=== PATIENT | male | born 1965 | race Two or more races ===

== ENCOUNTER 2023-02-22 13:08 | Inpatient (IN) | payer BC ==
[~2023-02-22] VITALS: Ht 182.9 cm; Wt 109.0 kg
[2023-02-22] MEDS ORDERED: ASPirin 325 MG TAB PO ONE (13:30)
[2023-02-22 13:54] LABS: Albumin 3.6 g/dL (3.4-5.0); Calcium 8.4 mg/dL (8.5-10.1); Magnesium 2.5 mg/dL (1.6-2.6); Potassium 4.8 mmol/L (3.5-5.1)
[2023-02-22 13:58] LABS: BUN/Creatinine Ratio 21.2 (10.0-20.0); Bilirubin, Total 0.7 mg/dL (0.2-1.0); Total Protein 7.3 g/dL (6.4-8.2)
[2023-02-22 14:01] LABS: INR 1.02 (0.9-1.15); Partial Thromboplastin Time 30.3 sec (24.6-33.4)
[2023-02-22 14:24] LABS: Basophils # (auto) 0.1 10 ^3/uL (0-0.2); Basophils % (auto) 0.8 % (0.0-2.0); Eosinophils # (auto) 0.2 10 ^3/uL (0-0.8); Eosinophils % (auto) 1.8 % (0.0-7.0); Hematocrit 43.4 % (41.0-53.0); Hemoglobin 14.6 g/dL (13.5-17.5); Lymphocytes # (auto) 1.4 10 ^3/uL (0.4-5.4); Lymphocytes % (auto) 13.9 % (10.0-50.0); Mean Corpuscular Hemoglobin 31.5 pg (28.0-32.0); Mean Corpuscular Hgb Conc. 33.6 g/dL (32.0-36.0); Mean Corpuscular Volume 93.7 fL (80.0-100.0); Monocytes # (auto) 0.6 10 ^3/uL (0-1.3); Monocytes % (auto) 6.1 % (0.0-12.0); Neutrophils # (auto) 7.7 10 ^3/uL (1.6-8.6); Neutrophils % (auto) 77.4 % (37.0-80.0); Red Blood Cells 4.63 10^6/uL (4.5-5.90); Red Cell Distribution Width 13.8 % (11.8-14.3)
[2023-02-22] MEDS ORDERED: NITROGLYCERIN 0.4 MG SL TAB SL ONE (15:15)
[2023-02-22 15:32] LABS: Urine Bacteria NONE SEEN /hpf (None Seen); Urine Blood Negative /uL (Negative); Urine Mucus FEW (None Seen); Urine Specific Gravity 1.022 (1.001-1.035); Urine WBC 11 /hpf (0 - 3)
[2023-02-22 15:53] LABS: Barbiturate Scree,Urine NEGATIVE (NEGATIVE); Benzodiazephine Screen, Urine NEGATIVE (NEGATIVE); Cannabinoid Screen, Urine POSITIVE (NEGATIVE); Cocaine Screen, Urine NEGATIVE (NEGATIVE)
[2023-02-22 16:00] LABS: Amphetamine Screen, Urine NEGATIVE (NEGATIVE); Opiate Scree,Urine NEGATIVE (NEGATIVE); Phencyclidine Screen, Urine NEGATIVE (NEGATIVE)
[2023-02-22] MEDS ORDERED: ONDANSETRON HCL 4 MG/2 ML VIAL IV PRN (21:00)
[2023-02-22] MEDS ORDERED: DOCUSATE SOD 100 MG CAP PO PRN (21:00)
[2023-02-22] MEDS ORDERED: cefTRIAXone 1GM/50ML D5W 50 ML IV ONE (21:00)
[2023-02-22] MEDS: SODIUM CHLORIDE 0.9% 1,000 ML IV SCH (21:00)
[2023-02-22] MEDS ORDERED: ACETAMINOPHEN 325 MG TAB PO PRN (21:00)
[2023-02-22] MEDS ORDERED: DEXTROSE (50%) 50ML SYRG IV PRN (21:00)
[2023-02-22] MEDS: InsuLIN REG 1unit/0.01ml Soln (100units/ml) SC SCH (22:00)
[2023-02-22] MEDS: ATORVASTATIN 20 MG TAB PO SCH (22:23)
[2023-02-22] MEDS: ACCU-CHEK COMFORT CURVE STRIP VI SCH (22:24)
[2023-02-22] MEDS ORDERED: NITROGLYCERIN 0.4 MG SL TAB SL PRN (23:45)
[2023-02-22] MEDS ORDERED: MORPHINE SULFATE INJ 2 MG/ml SYRG IV PRN (23:45)
[2023-02-23 05:09] LABS: Basophils # (auto) 0.1 10 ^3/uL (0-0.2); Basophils % (auto) 0.6 % (0.0-2.0); Eosinophils # (auto) 0.2 10 ^3/uL (0-0.8); Eosinophils % (auto) 2.6 % (0.0-7.0); Hematocrit 42.7 % (41.0-53.0); Hemoglobin 14.3 g/dL (13.5-17.5); Lymphocytes # (auto) 1.3 10 ^3/uL (0.4-5.4); Lymphocytes % (auto) 15.7 % (10.0-50.0); Mean Corpuscular Hemoglobin 31.7 pg (28.0-32.0); Mean Corpuscular Hgb Conc. 33.4 g/dL (32.0-36.0); Mean Corpuscular Volume 94.7 fL (80.0-100.0); Monocytes # (auto) 0.8 10 ^3/uL (0-1.3); Monocytes % (auto) 9.3 % (0.0-12.0); Neutrophils # (auto) 6.1 10 ^3/uL (1.6-8.6); Neutrophils % (auto) 71.8 % (37.0-80.0); Nucleated Red Blood Cells % 0.1 %; Red Blood Cells 4.51 10^6/uL (4.5-5.90); Red Cell Distribution Width 13.9 % (11.8-14.3); White Blood Cell 8.5 10^3/uL (4.4-10.8)
[2023-02-23 05:43] LABS: Albumin 3.3 g/dL (3.4-5.0); BUN/Creatinine Ratio 26.4 (10.0-20.0); Calcium 8.7 mg/dL (8.5-10.1); Potassium 3.9 mmol/L (3.5-5.1)
[2023-02-23 05:46] LABS: Bilirubin, Total 0.4 mg/dL (0.2-1.0); Total Protein 7.5 g/dL (6.4-8.2)
[2023-02-23] MEDS: SODIUM CHLORIDE 0.9% 1,000 ML IV SCH (09:29)
[2023-02-23] MEDS: ASPirin 81 mg TAB PO SCH (09:49)
[2023-02-23] MEDS: FAMOTIDINE 20 MG TAB PO SCH (09:49)
[2023-02-23] MEDS: InsuLIN REG 1unit/0.01ml Soln (100units/ml) SC SCH ×4 (09:51→22:47)
[2023-02-23] MEDS: ACCU-CHEK COMFORT CURVE STRIP VI SCH ×4 (09:52→22:16)
[2023-02-23] MEDS: LEVOTHYROXINE SODIUM 50 MCG TAB PO SCH (09:55)
[2023-02-23] MEDS: HYDROcodone-ACET 5/325MG TAB PO PRN ×2 (13:06→17:27)
[2023-02-23] MEDS ORDERED: ALPRAZolam 0.5 MG TAB PO ONE (19:00)
[2023-02-23] MEDS ORDERED: cefTRIAXone 1GM/50ML D5W 50 ML IV SCH (21:00)
[2023-02-23] MEDS: ATORVASTATIN 20 MG TAB PO SCH (22:44)
[2023-02-24] MEDS: LEVOTHYROXINE SODIUM 50 MCG TAB PO SCH (06:58)
[2023-02-24] MEDS: ACCU-CHEK COMFORT CURVE STRIP VI SCH ×3 (06:58→17:25)
[2023-02-24] MEDS: InsuLIN REG 1unit/0.01ml Soln (100units/ml) SC SCH ×3 (06:59→17:24)
[2023-02-24] MEDS: SODIUM CHLORIDE 0.9% 1,000 ML IV SCH (07:02)
[2023-02-24] MEDS: FAMOTIDINE 20 MG TAB PO SCH (08:54)
[2023-02-24] MEDS: ASPirin 81 mg TAB PO SCH (08:54)
[2023-02-24 10:11] VITALS: BP 147/84
[2023-02-24] MEDS ORDERED: LAMO25TA2 PO (11:57)
[2023-02-24] MEDS ORDERED: CHOL-17 PO (11:57)
[2023-02-24] MEDS ORDERED: INSLISPI SC (11:57)
[2023-02-24] MEDS ORDERED: ESCI1TAB36 PO (11:57)
[2023-02-24] MEDS ORDERED: MULT-928 PO (11:57)
[2023-02-24] MEDS ORDERED: POTA10TA51 PO (11:57)
[2023-02-24] MEDS ORDERED: EMPA1TAB PO (11:57)
[2023-02-24] MEDS ORDERED: LEVO25TA49 PO (11:57)
[2023-02-24] MEDS ORDERED: FENO145T27 PO (11:57)
[2023-02-24] MEDS ORDERED: ZINC50TA27 PO (11:57)
[2023-02-24] MEDS ORDERED: TAMS0.4C36 PO (11:57)
[2023-02-24] MEDS ORDERED: EPIN0.1I11 IJ (11:57)
[2023-02-24] MEDS ORDERED: INSLANTI SC (11:57)
[2023-02-24] MEDS ORDERED: SEMA1INJ2 SC (11:57)
[2023-02-24 12:43] VITALS: BP 133/76
[2023-02-24 17:00] VITALS: BP 137/80
[2023-02-24 17:55] VITALS: BP 137/80
== END 2023-02-24 19:30 | disposition home or self-care (01) | DRG 313 ==
LOC: ER 13:08 → TELE 23:40 → TELE-WESTW 02-24 10:28
PROVIDERS: ADMIT Nurse Practitioner Family; ATTEND Internal Medicine
DX: R07.89 Other chest pain (principal); N39.0 Urinary tract infection, site not specified; E11.65 Type 2 diabetes mellitus with hyperglycemia; E66.9 Obesity, unspecified; F41.9 Anxiety disorder, unspecified; N40.0 Benign prostatic hyperplasia without lower urinary tract symptoms; R26.81 Unsteadiness on feet; R06.02 Shortness of breath; Z68.32 Body mass index [BMI] 32.0-32.9, adult
CPT/HCPCS: 36415; 71045; 80053; 80307; 81001; 82962; 83036; 83735; 83880; 84443; 84484; 85025; 85610; 85730; 87086; 93005; 93306; 96365; G0378; J0696; J1815